=== PATIENT | female | born 1970 | race Caucasian/White ===

== ENCOUNTER → 2018-06-16 | Outpatient (CLI) | payer BC ==
[~2018-06-16] MED LIST: ALPR2TAB37 PO; BTR10SP2 NS; CHOL200035 PO; CYAN1TAB26 PO; ESTR1PAT10 TD; FISH400C PO; MAGN400C PO; MAGN400T6 PO; NAPR-243 PO; TOPI50TA2 PO; TRIPLE OMEGA; TRM50T PO; multi vitamin; vitamin b 12; vitamin d2
--- NOTE | 2018-06-17 13:34 | Diagnostic Imaging Report ---
INDICATION: Routine screening. COMPARISON: 03/01/2015 and 08/11/2013. TECHNIQUE: 2D and 3D bilateral screening mammography was performed with CAD. FINDINGS: Scattered fibroglandular densities are identified bilaterally. The parenchymal pattern is stable. No mass or malignant appearing microcalcifications are seen. The axillae are unremarkable. IMPRESSION: No mammographic features suspicious for malignancy are identified. ACR BI-RADS Category 1: Negative. Result letter will be mailed to the patient. Note: At least 10% of breast cancer is not imaged by mammography. Dictated by: Dictated on workstation # [id number]
== END ==
LOC: RAD 14:56
PROVIDERS: ATTEND Nurse Practitioner Family
DX: Z12.31 Encounter for screening mammogram for malignant neoplasm of breast (principal)
CPT/HCPCS: 77067

== ENCOUNTER 2021-02-28 11:58 | Emergency (ER) | payer SELFPAY ==
[~2021-02-28] VITALS: Ht 170 cm; Wt 78.0 kg
[2021-02-28] MEDS ORDERED: KETOROLAC 30 MG/ML VIAL ONE (12:16)
[2021-02-28] MEDS ORDERED: ONDANSETRON 4 MG/2 ML (SDV) Z0FRAN ONE (12:16)
[2021-02-28] MEDS ORDERED: NS IV 1000 ML 1,000 ML ONE (12:16)
[2021-02-28] MEDS ORDERED: KETOROLAC 30 MG/ML VIAL IVP STA (12:22)
--- NOTE | 2021-02-28 12:27 | ED GI ---
General Chief Complaint: Abdominal/GI Problems Stated Complaint: CHILLS,BACK PAIN, N/V COUGHING History of Present Illness Date Seen by Provider: Feb 28, 2021 Time Seen by Provider: 12:00 Initial Comments 50-year-old female presents for back and lower abdominal pain that is present on the left side. Symptoms began at 0900 today. She awoke and was getting ready to go on a walk when she began having pain, nausea, vomiting, and diarrhea. Her symptoms have persisted. She has had one Covid vaccine and is due for her second shot next week. She was tested once in April 2020. She has been extremely cautious and limiting any social outings because her is on dialysis. She wears a mask and gloves to get groceries and otherwise remains at home. She denies any fevers, cough or loss of taste and smell. She reports feeling fine yesterday and slept through the night without any symptoms. She has had a full hysterectomy no other abdominal surgeries, she is unsure if her appendix was removed during her hysterectomy. She did have a kidney stone in the past approximately 8 years ago. Timing/Duration: 1-3 Hours Severity/Quality: Moderate Location: LLQ Radiation: Flank (left) Activities at Onset: None Modifying Factors: Improves With Resting Associated Symptoms: Back Pain (left lower); No Chest Pain, No Fever/Chills, No Headache; Nausea/Vomiting; No Shortness of Air, No Swelling/Mass in Abdomen, No Weakness Allergies and Home Medications Allergies Coded Allergies: Codeine (Verified Allergy, Unknown, 04/01/06) Home Medications Cholecalciferol (Vitamin D3) 2,000 Unit Capsule, 1,000 MG PO DAILY, (Reported) Cyanocobalamin/Folic Acid 1 Each Tablet, 1 EACH PO DAILY, (Reported) Estradiol 0.1 Mg Patch, 0.05 MG TD WEEKLY, (Reported) Fish Oil/Borage/Flax/Om3,6,9#1 1 Each Capsule, 1 EACH PO DAILY, (Reported) Magnesium Oxide 400 Mg Capsule, 250 MG PO DAILY, (Reported) Naproxen 500 Mg Tablet, 1 EACH PO TID PRN FOR PAIN Prescribed by: SEAN MARTÍNEZ on 10/15/124 Topiramate 50 Mg Tablet, 50 MG PO DAILY, (Reported) Tramadol Hcl 50 Mg Tab, 50 MG PO Q4-6HOURS PRN FOR PAIN Prescribed by: SEAN MARTÍNEZ on 10/15/12 0515 Patient Home Medication List Home Medication List Reviewed: Yes Review of Systems Review of Systems Constitutional: no symptoms reported, see HPI EENTM: No Symptoms Reported, See HPI Gastrointestinal: See HPI, Abdominal Pain; Denies Constipated; Diarrhea, Nausea, Poor Appetite, Vomiting Genitourinary: No Symptoms Reported, See HPI Musculoskeletal: see HPI, back pain (Left flank,lower) All Other Systems Reviewed Negative Unless Noted: Yes Past Exirtog-Gybppu-Lfqxya Hx Past Med/Social Hx: Reviewed Nursing Past Med/Soc Hx Patient Social History Alcohol Use: Occasionally Uses Smoking Status: Current Everyday Smoker Type Used: Cigarettes Recent Hopitalizations: No Past Medical History Surgeries: Yes Appendectomy, Hysterectomy Respiratory: No Cardiac: No Neurological: No 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 oz. kg; BMI Method:Stated General Appearance: WD/WN, mild distress (Secondary to pain and vomiting) HEENT: PERRL/EOMI, normal ENT inspection, TMs normal, pharynx normal, other (Oral mucosa pink and moist) Neck: non-tender, full range of motion, supple Respiratory: chest non-tender, lungs clear, normal breath sounds Cardiovascular: normal peripheral pulses, regular rate, rhythm, no edema Gastrointestinal: normal bowel sounds, soft; No distended, No rebound; tenderness (Generalized throughout the entire abdomen); No mass Extremities: normal range of motion, non-tender, normal inspection Back: normal inspection, no vertebral tenderness, CVA tenderness (L) (Lower) Neurologic/Psychiatric: no motor/sensory deficits, alert, oriented x 3 Skin: normal color, warm/dry Progress/Results/Core Measures Results/Orders Lab Results Laboratory Tests Test 02/28/21 12:25 02/28/21 12:35 Range/Units White Blood Count 9.4 4.3-11.0 10^3/uL Red Blood Count 5.11 3.80-5.11 10^6/uL Hemoglobin 16.0 11.5-16.0 g/dL Hematocrit 48 35-52 % Mean Corpuscular Volume 94 80-99 fL Mean Corpuscular Hemoglobin 31 25-34 pg Mean Corpuscular Hemoglobin Concent 33 32-36 g/dL Red Cell Distribution Width 11.9 10.0-14.5 % Platelet Count 296 130-400 10^3/uL Mean Platelet Volume 9.8 9.0-12.2 fL Immature Granulocyte % (Auto) 1 % Neutrophils (%) (Auto) 73 42-75 % Lymphocytes (%) (Auto) 19 12-44 % Monocytes (%) (Auto) 5 0-12 % Eosinophils (%) (Auto) 2 0-10 % Basophils (%) (Auto) 1 0-10 % Neutrophils # (Auto) 6.8 1.8-7.8 10^3/uL Lymphocytes # (Auto) 1.8 1.0-4.0 10^3/uL Monocytes # (Auto) 0.4 0.0-1.0 10^3/uL Eosinophils # (Auto) 0.1 0.0-0.3 10^3/uL Basophils # (Auto) 0.1 0.0-0.1 10^3/uL Immature Granulocyte # (Auto) 0.1 0.0-0.1 10^3/uL Sodium Level 140 135-145 MMOL/L Potassium Level 3.9 3.6-5.0 MMOL/L Chloride Level 106 98-107 MMOL/L Carbon Dioxide Level 20 L 21-32 MMOL/L Anion Gap 14 5-14 MMOL/L Blood Urea Nitrogen 17 7-18 MG/DL Creatinine 1.04 0.60-1.30 MG/DL Estimat Glomerular Filtration Rate 56 BUN/Creatinine Ratio 16 Glucose Level 111 H 70-105 MG/DL Calcium Level 10.3 H 8.5-10.1 MG/DL Corrected Calcium 8.5-10.1 MG/DL Total Bilirubin 0.3 0.1-1.0 MG/DL Aspartate Amino Transf (AST/SGOT) 40 H 5-34 U/L Alanine Aminotransferase (ALT/SGPT) 55 0-55 U/L Alkaline Phosphatase 80 40-136 U/L C-Reactive Protein High Sensitivity 0.64 H 0.00-0.50 MG/DL Total Protein 9.0 H 6.4-8.2 GM/DL Albumin 4.9 H 3.2-4.5 GM/DL Amylase Level 50 25-125 U/L Lipase 31 8-78 U/L Urine Color YELLOW Urine Clarity CLEAR Urine pH 5.0 5-9 Urine Specific [place] >=1.030 1.016-1.022 Urine Protein TRACE H NEGATIVE Urine Glucose (UA) NEGATIVE NEGATIVE Urine Ketones NEGATIVE NEGATIVE Urine Nitrite NEGATIVE NEGATIVE Urine Bilirubin NEGATIVE NEGATIVE Urine Urobilinogen 0.2 < = 1.0 MG/DL Urine Leukocyte Esterase NEGATIVE NEGATIVE Urine RBC (Auto) 3+ H NEGATIVE Urine RBC >100 H /HPF Urine WBC 0-2 /HPF Urine Squamous Epithelial Cells 5-10 /HPF Urine Crystals NONE /LPF Urine Bacteria FEW H /HPF Urine Casts PRESENT /LPF Urine Granular Casts 5-10 H /LPF Urine Mucus NEGATIVE /LPF Urine Culture Indicated NO Coronavirus 2019 (KENNETH) Negative Negative Micro Results Microbiology 02/28/21 Influenza Types A,B Antigen (ANEL) - Final, Complete My Orders Orders - ANJANA ROSE Covid 19 Inhouse Test (02/28/21 12:14) Ketorolac Injection (Toradol Injection) (02/28/21 12:16) Amylase (02/28/21 12:22) Cbc With Automated Diff (02/28/21 12:22) Comprehensive Metabolic Panel (02/28/21 12:22) Hs C Reactive Protein (02/28/21 12:22) Lipase (02/28/21 12:22) Ed Iv/Invasive Line Start (02/28/21 12:22) Ns Iv 1000 Ml (Sodium Chloride 0.9%) (02/28/21 12:30) Ketorolac Injection (Toradol Injection) (02/28/21 12:22) Ondansetron Injection (Zofran Injectio (02/28/21 12:30) Ns Iv 1000 Ml (Sodium Chloride 0.9%) (02/28/21 12:16) Ondansetron Injection (Zofran Injectio (02/28/21 12:16) Influenza A And B Antigens (02/28/21 12:53) Ct Abd/Pelvis Wo(Kidney Stone) (02/28/21 12:57) Medications Given in ED Current Medications Medications Dose Ordered Sig/Stanley Route Start Time Stop Time Status Last Admin Dose Admin Ondansetron HCl 8 mg ONCE ONCE IVP 02/28/21 12:30 02/28/21 12:31 DC 02/28/21 12:27 8 MG Vital Signs/I&O 02/28/21 12:10 Temp 36.9 Pulse 80 Resp 18 B/P (MAP) 153/108 (123) Pulse Ox 98 Progress Progress Note : Time: 12:00 Progress Note Patient seen and evaluated, will obtain labs, normal saline 1 L IV, Toradol 30 mg IV, and Zofran 8 mg IV. 1245 we will proceed with CT of abdomen and pelvis for rule out kidney stone. 1315 patient reports improvement in pain,B/P110/70. Going to CT. 1400 [address] results reviewed with the patient. No obstructing stones noted. There is some inflammation in the proximal ureter. Discharge instructions and return precautions reviewed with the patient. All questions answered. 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 TECHNIQUE: Multiple contiguous axial images were obtained through the abdomen and pelvis without the use of intravenous contrast. All CT scans use one or more of the following dose optimizing techniques: automated exposure control, MA and/or KvP adjustment based on a patient size and exam type, or iterative reconstruction. HISTORY: Flank pain, kidney stone. COMPARISON: 09/16/2013 FINDINGS: Limited views of the lower thorax are unremarkable. Liver is severely steatotic. No focal liver lesions are seen. There is no biliary ductal dilation. Gallbladder is normal. Pancreas is normal. Spleen is normal. Adrenal glands are normal. There is mild left hydroureteronephrosis. No obstructing stone is seen and this is favored to reflect a recently passed stone. There is a phlebolith within a gonadal vein adjacent to the ureter but no intraureteral stones. Urinary bladder is normal. Visualized bowel is normal in caliber without obstruction or inflammation. No free fluid or air. No abdominal or pelvic lymphadenopathy. Aorta is normal in caliber without aneurysm. There are no suspicious osseous lesions. IMPRESSION: 1. Mildly dilated left ureter and mild left hydronephrosis with no obstructing stone seen. Findings likely reflect recently passed stone. 2. Severe hepatic steatosis. Dictated on workstation # [id number] Dict: 02/28/21 1347 Trans: 02/28/21 1354 [facility] [id number] Interpreted by: AZRA MCCARTHY MD Electronically signed by: Departure Impression Primary Impression: Nausea vomiting and diarrhea Additional Impression: Urolithiasis Qualified Codes: N21.8 - Other lower urinary tract calculus Disposition: HOME, SELF-CARE Condition: Improved Departure-Patient Inst. Decision time for Depature: 13:45 Referrals: KHANH LU DO (PCP/Family) Primary Care Physician Patient Instructions: Kidney Stones (DC) Add. Discharge Instructions: Increase water intake, 16 ounces every 2 hours while awake. Use the Zofran 8 mg every 6-8 hours as needed for nausea or vomiting. Take ibuprofen 600 mg alternating with Tylenol 650 mg every 4 hours as needed for pain. Follow-up with your primary care provider if symptoms are not improving or worsen. Return to the emergency department for new, urgent healthcare concerns. All discharge instructions reviewed with patient and/or family. Voiced understanding. ANJANA ROSE Feb 28, 2021 12:26
[2021-02-28] MEDS ORDERED: ONDANSETRON 4 MG/2 ML (SDV) Z0FRAN IVP ONE (12:30)
[2021-02-28] MEDS ORDERED: NS IV 1000 ML 1,000 ML IV SCH (12:30)
[2021-02-28 12:44] LABS: BASOPHILS # (AUTO) 0.1 10^3/uL (0.0-0.1); BASOPHILS % (AUTO) 1 % (0-10); EOSINOPHILS # (AUTO) 0.1 10^3/uL (0.0-0.3); EOSINOPHILS % (AUTO) 2 % (0-10); HEMATOCRIT 48 % (35-52); LYMPHOCYTES # (AUTO) 1.8 10^3/uL (1.0-4.0); LYMPHOCYTES % (AUTO) 19 % (12-44); MEAN CORPUSCULAR HEMOGLOBIN 31 pg (25-34); MEAN CORPUSCULAR HGB CONC 33 g/dL (32-36); MEAN CORPUSCULAR VOLUME 94 fL (80-99); MEAN PLATELET VOLUME 9.8 fL (9.0-12.2); MONOCYTES # (AUTO) 0.4 10^3/uL (0.0-1.0); MONOCYTES % (AUTO) 5 % (0-12); NEUTROPHILS # (AUTO) 6.8 10^3/uL (1.8-7.8); NEUTROPHILS % (AUTO) 73 % (42-75); PLATELET COUNT 296 10^3/uL (130-400); WHITE BLOOD COUNT 9.4 10^3/uL (4.3-11.0)
[2021-02-28 12:46] LABS: BILIRUBIN,URINE NEGATIVE (NEGATIVE); CLARITY,URINE CLEAR; COLOR,URINE YELLOW; GLUCOSE, URINE (UA) NEGATIVE (NEGATIVE); KETONES,URINE NEGATIVE (NEGATIVE); LEUKOCYTE ESTERASE ,URINE NEGATIVE (NEGATIVE); NITRITE,URINE NEGATIVE (NEGATIVE); PROTEIN,URINE TRACE (NEGATIVE)
[2021-02-28 12:54] LABS: ALBUMIN 4.9 GM/DL (3.2-4.5); CHLORIDE 106 MMOL/L (98-107); POTASSIUM 3.9 MMOL/L (3.6-5.0); SODIUM 140 MMOL/L (135-145)
[2021-02-28 12:55] LABS: AMYLASE 50 U/L (25-125)
[2021-02-28 12:56] LABS: BACTERIA,URINE FEW /HPF; RBC,URINE >100 /HPF; WBC,URINE 0-2 /HPF
[2021-02-28 12:56] LABS: CALCIUM 10.3 MG/DL (8.5-10.1)
[2021-02-28 12:57] LABS: GLUCOSE 111 MG/DL (70-105)
[2021-02-28 12:58] LABS: CARBON DIOXIDE 20 MMOL/L (21-32)
[2021-02-28 12:59] LABS: BILIRUBIN,TOTAL 0.3 MG/DL (0.1-1.0)
[2021-02-28 13:00] LABS: ALKALINE PHOSPHATASE 80 U/L (40-136); CREATININE SERUM 1.04 MG/DL (0.60-1.30); GFR ESTIMATED 56
[2021-02-28 13:01] LABS: BUN/CREATININE RATIO 16
[2021-02-28 13:03] LABS: ALANINE AMINOTRANSFERASE 55 U/L (0-55)
[2021-02-28 13:04] LABS: LIPASE 31 U/L (8-78)
--- NOTE | 2021-02-28 13:54 | Diagnostic Imaging Report ---
EXAMINATION: CT Abdomen Pelvis without contrast. TECHNIQUE: Multiple contiguous axial images were obtained through the abdomen and pelvis without the use of intravenous contrast. All CT scans use one or more of the following dose optimizing techniques: automated exposure control, MA and/or KvP adjustment based on a patient size and exam type, or iterative reconstruction. HISTORY: Flank pain, kidney stone. COMPARISON: 09/16/2013 FINDINGS: Limited views of the lower thorax are unremarkable. Liver is severely steatotic. No focal liver lesions are seen. There is no biliary ductal dilation. Gallbladder is normal. Pancreas is normal. Spleen is normal. Adrenal glands are normal. There is mild left hydroureteronephrosis. No obstructing stone is seen and this is favored to reflect a recently passed stone. There is a phlebolith within a gonadal vein adjacent to the ureter but no intraureteral stones. Urinary bladder is normal. Visualized bowel is normal in caliber without obstruction or inflammation. No free fluid or air. No abdominal or pelvic lymphadenopathy. Aorta is normal in caliber without aneurysm. There are no suspicious osseous lesions. IMPRESSION: 1. Mildly dilated left ureter and mild left hydronephrosis with no obstructing stone seen. Findings likely reflect recently passed stone. 2. Severe hepatic steatosis. Dictated by: Dictated on workstation # [id number]
[2021-02-28 14:12] VITALS: BP 109/58
== END 2021-02-28 14:16 | disposition home or self-care (01) ==
LOC: EDUNIT# 11:58 → ER 12:00
DX: N13.2 Hydronephrosis with renal and ureteral calculous obstruction (principal); R19.7 Diarrhea, unspecified; F17.210 Nicotine dependence, cigarettes, uncomplicated; Z20.822 Contact with and (suspected) exposure to COVID-19; Z87.442 Personal history of urinary calculi; Z85.820 Personal history of malignant melanoma of skin; Z79.52 Long term (current) use of systemic steroids; Z88.5 Allergy status to narcotic agent
CPT/HCPCS: 74176; 80053; 81000; 82150; 83690; 85025; 86141; 87804; 99284; U0002; 36415; 87635

== ENCOUNTER → 2022-01-05 | Outpatient (CLI) | payer SELFPAY ==
[2022-01-05 11:55] LABS: BASOPHILS # (AUTO) 0.1 10^3/uL (0.0-0.1); BASOPHILS % (AUTO) 1 % (0-10); EOSINOPHILS # (AUTO) 0.2 10^3/uL (0.0-0.3); EOSINOPHILS % (AUTO) 3 % (0-10); HEMATOCRIT 48 % (35-52); HEMOGLOBIN 16.1 g/dL (11.5-16.0); LYMPHOCYTES # (AUTO) 2.8 10^3/uL (1.0-4.0); LYMPHOCYTES % (AUTO) 34 % (12-44); MEAN CORPUSCULAR HEMOGLOBIN 31 pg (25-34); MEAN CORPUSCULAR HGB CONC 34 g/dL (32-36); MEAN CORPUSCULAR VOLUME 93 fL (80-99); MEAN PLATELET VOLUME 9.3 fL (9.0-12.2); MONOCYTES # (AUTO) 0.5 10^3/uL (0.0-1.0); MONOCYTES % (AUTO) 6 % (0-12); NEUTROPHILS # (AUTO) 4.6 10^3/uL (1.8-7.8); NEUTROPHILS % (AUTO) 56 % (42-75); PLATELET COUNT 278 10^3/uL (130-400); WHITE BLOOD COUNT 8.3 10^3/uL (4.3-11.0)
--- NOTE | 2022-01-05 12:16 | Diagnostic Imaging Report ---
EXAMINATION: Chest 2 view HISTORY: Cough. COMPARISON: 07/23/2013. FINDINGS: The lung volumes are normal. No focal consolidation is seen. No large pleural effusion or pneumothorax is seen. The cardiomediastinal silhouette is normal in size and contour. No acute osseous abnormality is seen. IMPRESSION: 1. No acute pleuroparenchymal process. Dictated by: Dictated on workstation # [id number]
== END ==
LOC: RAD 11:30
PROVIDERS: ATTEND Nurse Practitioner Family
DX: J01.80 Other acute sinusitis (principal)
CPT/HCPCS: 36415; 71046; 85025

== ENCOUNTER 2022-03-15 08:06 | Emergency (ER) | payer SELFPAY ==
[~2022-03-15] VITALS: Ht 170 cm; Wt 72.0 kg
--- NOTE | 2022-03-15 08:25 | ED Abdominal Pain ---
General Chief Complaint: Abdominal/GI Problems Stated Complaint: ABD PAIN Source of Information: Patient Exam Limitations: No Limitations (ROBERT COREAS MED STUDENT) History of Present Illness Date Seen by Provider: Mar 15, 2022 Time Seen by Provider: 08:10 Initial Comments Mrs. Barraza is a 51yo female that presents to ED today due to abdominal pain. She developed severe lower abdominal pain around 0500. She thinks she could have IBS but she needs to get a colonoscopy. She does not have health insurance until april so cannot get one until then. She will have diarrhea about 4-6 times every morning. There is no blood as far as she can tell. Denies nausea and vomiting. She had covid in December and has had some lingering cough since. She has been on antibiotics and even had a 4 day course of miconazole. She has has kidney stones and UTI before, she states it does not feel like this. Denies urinary symptoms. Has has hysterectomy. Does not drink, smoke, or use drugs. (ROBERT COREAS STUDENT) Initial Comments Patient reports having frequent loose stools, especially in the mornings, for a few months now. This seemed to get worse after having Covid in December and pneumonia in January. She states she completed 3 weeks worth of antibiotics and steroids and during the pneumonia. She has been afebrile. She denies any nausea or vomiting. She has had a hysterectomy sparing ovaries. Pain seems to be generalized in the pelvic region bilaterally. She denies any urinary symptoms. 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 She has felt the need for a colonoscopy to evaluate her bowel troubles for some time but has put that off while caring for her and uninsured. (RONALD MAYEN MD) Allergies and Home Medications Allergies Coded Allergies: Codeine (Verified Allergy, Unknown, 04/01/06) Patient Home Medication List Home Medication List Reviewed: Yes (RONALD MAYEN MD) Cholecalciferol (Vitamin D3) (Vitamin D3) 2,000 Unit Capsule, 1,000 MG PO DAILY, (Reported) Entered as Reported by: JOSEPH JARQUIN on 10/15/12 1234 Cyanocobalamin/Folic Acid (Vitamin C39-Seacp Acid Tablet) 1 Each Tablet, 1 EACH PO DAILY, (Reported) Entered as Reported by: JOSEPH JARQUIN on 10/15/12 1234 Estradiol (Estraderm 0.1MG Patch) 0.1 Mg Patch, 0.05 MG TD WEEKLY, (Reported) Entered as Reported by: JOSEPH JARQUIN on 10/15/12 1228 Fish Oil/Borage/Flax/Om3,6,9#1 ([place] 3-6-9 Complex Softgel) 1 Each Capsule, 1 EACH PO DAILY, (Reported) Entered as Reported by: JOSEPH JARQUIN on 10/15/12 1234 Hyoscyamine Sulfate (Levsin-Sl) 0.125 Mg Tab.subl, 0.125 MG SL Q4H PRN for CRAMPS Prescribed by: RONALD BERRY on 03/15/22 1143 Magnesium Oxide (Magnesium) 400 Mg Capsule, 250 MG PO DAILY, (Reported) Entered as Reported by: JOSEPH JARQUIN on 10/15/12 1228 Naproxen (Naprosyn) 500 Mg Tablet, 1 EACH PO TID PRN Prescribed by: SEAN MARTÍNEZ on 10/15/12 1744 Topiramate (Topiramate) 50 Mg Tablet, 50 MG PO DAILY, (Reported) Entered as Reported by: JOSEPH JARQUIN on 10/15/12 1228 Tramadol Hcl (Ultram) 50 Mg Tab, 50 MG PO Q4-6HOURS PRN Prescribed by: SEAN MARTÍNEZ on 10/15/12 1744 Review of Systems Review of Systems Constitutional: No chills, No fever Respiratory: Cough (chronic-post covid cough); Denies Shortness of Air Cardiovascular: Denies Chest Pain, Denies Palpitations Gastrointestinal: Abdominal Pain (Lower abdominal, middle); Denies Constipated; Diarrhea (4-6 episodes per morning); Denies Nausea, Denies Rectal Bleeding, Denies Vomiting Genitourinary: Denies Hematuria; Other (no dysuria) Musculoskeletal: No back pain, No joint pain Skin: No lesions, No rash Psychiatric/Neurological: Denies Headache, Denies Numbness (ROBERT COREAS MED STUDENT) Past Apslldn-Jtzriv-Osdlsc Hx Patient Social History Tobacco Use?: No Use of E-Cig and/or Vaping dev: No Substance use?: No Alcohol Use?: No (RONALD MAYEN MD) Past Medical History Surgeries: Yes Appendectomy, Hysterectomy Respiratory: No Cardiac: No Neurological: No IMPORT/EXPORT ANALYST History: Hysterectomy Genitourinary: No Gastrointestinal: No Musculoskeletal: No Endocrine: No HEENT: No Cancer: Yes (MELANOMA OF FOOT) What Type of Treatment Did You: Surgical Intervention Psychosocial: No Integumentary: No (ROBERT COREAS STUDENT) Physical Exam Vital Signs Vital Signs - First Documented 03/15/22 08:10 Temp 35.6 Pulse 96 Resp 18 B/P (MAP) 130/96 (107) Pulse Ox 100 (RONALD MAYEN MD) Vital Signs Capillary Refill : (ROBERT COREAS STUDENT) Height/Weight/BMI Height: '" Weight: lbs. oz. kg; 26.00 BMI Method:Stated (ROBERT COREAS STUDENT) General Appearance: WD/WN, no apparent distress HEENT: PERRL/EOMI, normal ENT inspection Neck: normal inspection Respiratory: lungs clear, normal breath sounds, no respiratory distress, no accessory muscle use Cardiovascular: regular rate, rhythm, no edema, no murmur Gastrointestinal: normal bowel sounds, soft, tenderness (Generalized tenderness throughout the lower abdomen bilaterally) Extremities: normal inspection, no pedal edema Neurologic/Psychiatric: gun numberer II-XII nml as tested, no motor/sensory deficits, alert, normal mood/affect, oriented x 3 Skin: normal color, warm/dry (RONALD MAYEN MD) Progress/Results/Core Measures Results/Orders Lab Results Laboratory Tests Test 03/15/22 08:12 03/15/22 08:55 03/15/22 08:57 Range/Units White Blood Count 8.2 4.3-11.0 10^3/uL Red Blood Count 5.06 3.80-5.11 10^6/uL Hemoglobin 16.0 11.5-16.0 g/dL Hematocrit 49 35-52 % Mean Corpuscular Volume 97 80-99 fL Mean Corpuscular Hemoglobin 32 25-34 pg Mean Corpuscular Hemoglobin Concent 33 32-36 g/dL Red Cell Distribution Width 12.1 10.0-14.5 % Platelet Count 299 130-400 10^3/uL Mean Platelet Volume 9.7 9.0-12.2 fL Immature Granulocyte % (Auto) 1 % Neutrophils (%) (Auto) 51 42-75 % Lymphocytes (%) (Auto) 37 12-44 % Monocytes (%) (Auto) 8 0-12 % Eosinophils (%) (Auto) 3 0-10 % Basophils (%) (Auto) 1 0-10 % Neutrophils # (Auto) 4.2 1.8-7.8 10^3/uL Lymphocytes # (Auto) 3.0 1.0-4.0 10^3/uL Monocytes # (Auto) 0.7 0.0-1.0 10^3/uL Eosinophils # (Auto) 0.2 0.0-0.3 10^3/uL Basophils # (Auto) 0.1 0.0-0.1 10^3/uL Immature Granulocyte # (Auto) 0.1 0.0-0.1 10^3/uL Sodium Level 139 135-145 MMOL/L Potassium Level 3.6 3.6-5.0 MMOL/L Chloride Level 100 98-107 MMOL/L Carbon Dioxide Level 24 21-32 MMOL/L Anion Gap 15 H 5-14 MMOL/L Blood Urea Nitrogen 11 7-18 MG/DL Creatinine 0.90 0.60-1.30 MG/DL Estimat Glomerular Filtration Rate 78 BUN/Creatinine Ratio 12 Glucose Level 106 H 70-105 MG/DL Calcium Level 9.6 8.5-10.1 MG/DL Corrected Calcium 9.2 8.5-10.1 MG/DL Total Bilirubin 0.5 0.1-1.0 MG/DL Aspartate Amino Transf (AST/SGOT) 27 5-34 U/L Alanine Aminotransferase (ALT/SGPT) 29 0-55 U/L Alkaline Phosphatase 67 40-136 U/L C-Reactive Protein High Sensitivity 0.41 0.00-0.50 MG/DL Total Protein 7.9 6.4-8.2 GM/DL Albumin 4.5 3.2-4.5 GM/DL Lipase 41 8-78 U/L Urine Color YELLOW Urine Clarity CLEAR Urine pH 5.5 5-9 Urine Specific Willis <=1.005 1.016-1.022 Urine Protein NEGATIVE NEGATIVE Urine Glucose (UA) NEGATIVE NEGATIVE Urine Ketones NEGATIVE NEGATIVE Urine Nitrite NEGATIVE NEGATIVE Urine Bilirubin NEGATIVE NEGATIVE Urine Urobilinogen 0.2 < = 1.0 MG/DL Urine Leukocyte Esterase NEGATIVE NEGATIVE Urine RBC (Auto) NEGATIVE NEGATIVE Urine RBC NONE /HPF Urine WBC NONE /HPF Urine Squamous Epithelial Cells 0-2 /HPF Urine Crystals NONE /LPF Urine Bacteria NEGATIVE /HPF Urine Casts NONE /LPF Urine Mucus NEGATIVE /LPF Urine Culture Indicated NO Stool Occult Blood Immunoassay NEGATIVE NEGATIVE (RONALD MAYEN MD) Micro Results Microbiology 03/15/22 C. difficile GDH Antigen & Toxins - Final, Resulted 03/15/22 Stool Culture, Resulted Pending (RONALD MAYEN MD) My Orders Orders - RONALD MAYEN MD Fentanyl Inj (Sublimaze Injection) (03/15/22 08:30) Cbc With Automated Diff (03/15/22 08:22) Comprehensive Metabolic Panel (03/15/22 08:22) Hs C Reactive Protein (03/15/22 08:) Lipase (03/15/22 08:22) Ua Culture If Indicated (03/15/22 08:22) C Difficile Ag + Toxin A/B. (03/15/22 08:22) Stool Culture (03/15/22 08:22) Ct Abdomen/Pelvis W (03/15/22 09:30) Iohexol Injection (Omnipaque 350 Mg/Ml 1 (03/15/22 10:00) Received Contrast (Hold Metformin- Contr (03/15/22 10:00) Sodium Chloride Flush (Catheter Flush Sy (03/15/22 10:00) Ns (Ivpb) (Sodium Chloride 0.9% Ivpb Bag (03/15/22 10:00) Ketorolac Injection (Toradol Injection) (03/15/22 11:00) Occult Blood Stool (03/15/22 11:36) (RONALD MAYEN MD) Medications Given in ED Current Medications Medications Dose Ordered Sig/Stanley Route Start Time Stop Time Status Last Admin Dose Admin Fentanyl Citrate 50 mcg ONCE ONCE IVP 03/15/22 08:30 03/15/22 08:31 DC 03/15/22 08:31 50 MCG Iohexol 100 ml ONCE ONCE IV 03/15/22 10:00 03/15/22 10:01 DC 03/15/22 10:24 92 ML Ketorolac Tromethamine 30 mg ONCE ONCE IVP 03/15/22 11:00 03/15/22 11:01 DC 03/15/22 11:22 30 MG Sodium Chloride 10 ml NEEDED PRN IV 03/15/22 10:00 03/15/22 11:59 DC 03/15/22 10:24 10 ML Sodium Chloride 100 ml ONCE ONCE IV 03/15/22 10:00 03/15/22 10:01 DC 03/15/22 10:24 80 ML (RONALD MAYEN MD) Vital Signs/I&O 03/15/22 03/15/22 08:10 11:59 Temp 35.6 Pulse 96 82 Resp 18 18 B/P (MAP) 130/96 (107) 132/93 Pulse Ox 100 99 (RONALD MAYEN MD) Progress Progress Note : Time: 12:56 Progress Note Patient was treated with fentanyl and later with Toradol for pain. Work-up was unremarkable. Hemoccult stool was negative. C. difficile screening was obtained because of patient's recent prolonged antibiotic and steroid use. Result is pending. Stool cultures are also pending. Patient was encouraged to follow through with the colonoscopy. See discharge instructions for further discussion. (RONALD MAYEN MD) Diagnostic Imaging Diagonstic Imaging: CT Plain Films/CT/US/NM/MRI: abdomen, pelvis Comments CT abdomen pelvis viewed by me and report reviewed. See report below: NAME: VICENTA BARRAZA [facility] REC#: [id number] PT STATUS: REG ER : 1970 PHYSICIAN: RONALD MAYEN MD ADMIT DATE: 03/15/22/ER Draft Date of Exam:03/15/22 CT ABDOMEN/PELVIS W PROCEDURE: CT abdomen and pelvis with contrast. TECHNIQUE: Multiple contiguous axial images were obtained through the abdomen and pelvis after administration of intravenous contrast. Auto Exposure Controls were utilized during the CT exam to meet ALARA standards for radiation dose reduction. All CT scans use one or more of the following dose optimizing techniques: automated exposure control, MA and/or KvP adjustment based on patient size and exam type or iterative reconstruction. INDICATION: Abdominal pain, diarrhea. Compared with nonenhanced CT abdomen and pelvis performed 02/28/2021. FINDINGS: There is no pathological colonic intestinal fluid loading. No abnormal fecal loading. No pericolonic edema. No segmental or diffuse large bowel wall thickening revealed. The unobstructed small bowel had an unremarkable appearance. Fatty infiltration of the liver has improved in severity from prior. No biliary abnormality. The spleen, adrenals and pancreas unremarkable. Aortoiliac and mesenteric vessels patent and nonaneurysmal. Urinary bladder unremarkable. No adnexal lesion. The uterus absent. Appendix surgically absent. There is no diverticulitis. IMPRESSION: No obstructive features, inflammatory process or acute abnormalities identified. Improvements in magnitude of fatty infiltration of the liver with no biliary pathology or acute pancreatic disease. Dictated on workstation # [id number] Dict: 03/15/22 1029 Trans: 03/15/22 1033 [id number] Interpreted by: NOAH WEI (RONALD MAYEN MD) Departure Impression Primary Impression: Lower abdominal pain Additional Impression: Frequent loose stools Qualified Codes: R19.7 - Diarrhea, unspecified Disposition: 01 HOME, SELF-CARE Condition: Stable Departure-Patient Inst. Decision time for Depature: 11:39 (RONALD MAYEN MD) Referrals: KHANH DOBBINS DO (PCP/Family) Primary Care Physician Patient Instructions: Severe Abdominal Pain Add. Discharge Instructions: Adhere to a clear liquid diet for the remainder of today to allow your bowels to rest. You may use ibuprofen up to 600 mg every 6 hours and/or Tylenol (acetaminophen) up to 1000 mg every 6 hours as needed for pain. If you have crampy pain or hzyd-eru-rxaxioo pain medications are not helpful, try the bowel spasm medicine Levsin (hyoscyamine) as prescribed. This medication dissolves under the tongue. Your stool study results should be available for review by Saturday. Please follow-up with Dr. Dobbins to review these study results. Continue with your plan to pursue colonoscopy as this is a reasonable next step in evaluating your pain. Return to care if you have worsening symptoms despite following these instructions. All discharge instructions reviewed with patient and/or family. Voiced understanding. Scripts Hyoscyamine Sulfate (Levsin-Sl) 0.125 Mg Tab.subl 0.125 MG SL Q4H PRN for CRAMPS, #10 TAB Prov: RONALD MAYEN MD 03/15/22 Copy Copies To 1: KHANH DOBBINS DEREK MED STUDENT Mar 15, 2022 08:25 RONALD MAYEN MD Mar 15, 2022 11:44
[2022-03-15] MEDS ORDERED: fentaNYL INJ 100 MCG/2 ML AMP IVP ONE (08:30)
[2022-03-15 08:37] LABS: BASOPHILS # (AUTO) 0.1 10^3/uL (0.0-0.1); BASOPHILS % (AUTO) 1 % (0-10); EOSINOPHILS # (AUTO) 0.2 10^3/uL (0.0-0.3); EOSINOPHILS % (AUTO) 3 % (0-10); HEMATOCRIT 49 % (35-52); LYMPHOCYTES % (AUTO) 37 % (12-44); MEAN CORPUSCULAR HEMOGLOBIN 32 pg (25-34); MEAN CORPUSCULAR HGB CONC 33 g/dL (32-36); MEAN CORPUSCULAR VOLUME 97 fL (80-99); MEAN PLATELET VOLUME 9.7 fL (9.0-12.2); MONOCYTES # (AUTO) 0.7 10^3/uL (0.0-1.0); MONOCYTES % (AUTO) 8 % (0-12); NEUTROPHILS # (AUTO) 4.2 10^3/uL (1.8-7.8); NEUTROPHILS % (AUTO) 51 % (42-75); PLATELET COUNT 299 10^3/uL (130-400); WHITE BLOOD COUNT 8.2 10^3/uL (4.3-11.0)
[2022-03-15 09:03] LABS: BILIRUBIN,URINE NEGATIVE (NEGATIVE); CLARITY,URINE CLEAR; COLOR,URINE YELLOW; GLUCOSE, URINE (UA) NEGATIVE (NEGATIVE); KETONES,URINE NEGATIVE (NEGATIVE); LEUKOCYTE ESTERASE ,URINE NEGATIVE (NEGATIVE); NITRITE,URINE NEGATIVE (NEGATIVE); PH,URINE 5.5 (5-9); PROTEIN,URINE NEGATIVE (NEGATIVE)
[2022-03-15 09:16] LABS: ALBUMIN 4.5 GM/DL (3.2-4.5); POTASSIUM 3.6 MMOL/L (3.6-5.0)
[2022-03-15 09:17] LABS: CALCIUM 9.6 MG/DL (8.5-10.1)
[2022-03-15 09:19] LABS: TOTAL PROTEIN 7.9 GM/DL (6.4-8.2)
[2022-03-15 09:20] LABS: BILIRUBIN,TOTAL 0.5 MG/DL (0.1-1.0)
[2022-03-15 09:22] LABS: CREATININE SERUM 0.9 MG/DL (0.60-1.30)
[2022-03-15 09:25] LABS: BACTERIA,URINE NEGATIVE /HPF; SQUAMOUS EPITHELIAL CELL,UR 0-2 /HPF
[2022-03-15] MEDS ORDERED: IOHEXOL 350 MG/ML 100 ML (OMNIPAQUE 350) VIAL IV ONE (10:00)
[2022-03-15] MEDS ORDERED: HOLD METFORMIN - RECEIVED CONTRAST 20 ML VIAL IV SCH (10:00)
[2022-03-15] MEDS ORDERED: NS 100 ML (IVPB) BAG IV ONE (10:00)
[2022-03-15] MEDS ORDERED: CATHETER FLUSH 10 ML SYR IV PRN (10:00)
--- NOTE | 2022-03-15 10:33 | Diagnostic Imaging Report ---
PROCEDURE: CT abdomen and pelvis with contrast. TECHNIQUE: Multiple contiguous axial images were obtained through the abdomen and pelvis after administration of intravenous contrast. Auto Exposure Controls were utilized during the CT exam to meet ALARA standards for radiation dose reduction. All CT scans use one or more of the following dose optimizing techniques: automated exposure control, MA and/or KvP adjustment based on patient size and exam type or iterative reconstruction. INDICATION: Abdominal pain, diarrhea. Compared with nonenhanced CT abdomen and pelvis performed 02/28/2021. FINDINGS: There is no pathological colonic intestinal fluid loading. No abnormal fecal loading. No pericolonic edema. No segmental or diffuse large bowel wall thickening revealed. The unobstructed small bowel had an unremarkable appearance. Fatty infiltration of the liver has improved in severity from prior. No biliary abnormality. The spleen, adrenals and pancreas unremarkable. Aortoiliac and mesenteric vessels patent and nonaneurysmal. Urinary bladder unremarkable. No adnexal lesion. The uterus absent. Appendix surgically absent. There is no diverticulitis. IMPRESSION: No obstructive features, inflammatory process or acute abnormalities identified. Improvements in magnitude of fatty infiltration of the liver with no biliary pathology or acute pancreatic disease. Dictated by: Dictated on workstation # [id number]
[2022-03-15] MEDS ORDERED: KETOROLAC 30 MG/ML VIAL IVP ONE (11:00)
[2022-03-15] MEDS ORDERED: HYOS0.1283 SL (11:43)
[2022-03-15 11:59] VITALS: BP 132/93
== END 2022-03-15 11:59 | disposition home or self-care (01) ==
LOC: EDUNIT# 08:06 → ER 08:08
DX: R10.30 Lower abdominal pain, unspecified (principal); R19.7 Diarrhea, unspecified
CPT/HCPCS: 36415; 74177; 80053; 81000; 82274; 83690; 85025; 86141; 87015; 87045; 87046; 87324; 87449; 87899

== ENCOUNTER 2022-05-07 05:38 | Outpatient (CLI) | payer BC ==
[~2022-05-07] VITALS: Ht 170.2 cm; Wt 72.6 kg
[~2022-05-07 05:38] MED LIST changes: +HYOS0.1283 SL
[2022-05-07] MEDS ORDERED: ESTR0.5T3 PO (09:43)
[2022-05-07] MEDS ORDERED: FLUC150T41 PO (09:43)
== END 2022-05-07 09:51 | disposition home or self-care (01) ==
LOC: PREOP 05:38
PROVIDERS: ATTEND Internal Medicine
DX: Z01.818 Encounter for other preprocedural examination (principal)

== ENCOUNTER 2022-05-11 10:23 | Day surgery (SDC) | payer BC ==
--- NOTE | 2022-05-07 08:06 | HISTORY AND PHYSICAL ---
DATE OF SERVICE: COLONOSCOPY HISTORY AND PHYSICAL HISTORY OF PRESENT ILLNESS: The patient is a 51-year-old white female referred by Dr. Mary Dobbins for her first screening colonoscopy. She reports that she had COVID infection, diagnosed around 12/23/2021. She ended up on some antibiotic therapy for several weeks and following that did have diarrhea with some bilateral lower quadrant crampy abdominal pain. It got bad enough that she did actually go to the emergency room on review of electronic medical record on 03/15/2022. Her workup there was unremarkable including a CT scan of the abdomen and pelvis that was unremarkable. Unremarkable CBC and chemistry panel with negative stool for occult blood. She was given a round of Diflucan and within a week or two being on antifungal medication, she reported resolution of her diarrhea. She was not sure of the time whether or not she had stool for C. diff done. She reports no significant abdominal symptoms currently, has noted no bright red blood per rectum, melena with resolution of her diarrhea. PAST MEDICAL HISTORY: Pertinent for recovery from COVID with no chronic symptoms being reported and no hospitalization required. 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 Simple excision number of years ago with no evidence for recurrence. PAST SURGICAL HISTORY: She had total abdominal hysterectomy and bilateral salpingo-oophorectomy in 2005. Prior to this, she had multiple surgeries for apparent large ovarian cyst. FAMILY HISTORY: Mother is living at the age of 75, dealing with some long COVID symptoms despite vaccination. Father living at age of 77, has had a history of aortic valve replacement. No reported family history for colon cancer and she is not aware if anybody has had colon polyps. 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 She reports no past smoking history and no significant alcohol intake history. REVIEW OF SYSTEMS: CONSTITUTIONAL: Denies night sweats, chills, fever or change in weights. GASTROINTESTINAL: As noted in the HPI. PULMONARY: Denies cough, wheezing or shortness of breath. CARDIOVASCULAR: Denies orthopnea, PND, pedal edema or chest discomfort. PHYSICAL EXAMINATION: GENERAL: Pleasant white female in no acute distress. VITAL SIGNS: She is 5 feet 7 inches tall, weight 168 pounds. Blood pressure 118/82. HEENT: Unremarkable. Sclerae nonicteric. CHEST: Clear to auscultation. CARDIOVASCULAR: Reveals regular rate and rhythm without murmur, S3 or S4. ABDOMEN: Soft, supple without mass or organomegaly. Mild left lower quadrant discomfort to palpation present. No bruits noted. Bowel sounds positive. No evidence for distention. EXTREMITIES: Reveal no cyanosis, clubbing or edema. ASSESSMENT: The patient is being set up for her first screening colonoscopy. She reports that she only has Fridays off cannot afford to take any other time off to do the procedure on any another day, so this is being scheduled at [facility], my only option for her. I thank you for the referral of this pleasant lady. Prep instructions were given. Electronic medical record was reviewed. Job ID: [id number] DocumentID: [id number] Dictated Date: 05/03/2022 16:50:21 Keymodule Assembly Machine Tender Date: 05/03/2022 17:24:26 Dictated By: MANI SZYMANSKI MD MTDD
[~2022-05-11] VITALS: Ht 170 cm; Wt 72.6 kg
[~2022-05-11 10:23] MED LIST changes: +ESTR0.5T3 PO; +FLUC150T41 PO
[2022-05-11] MEDS ORDERED: LACTATED RINGERS 1,000 ML IV STA (10:36)
[2022-05-11 11:00] VITALS: BP 112/83
--- NOTE | 2022-05-11 11:06 | Pre-Op Note & Conscious Sedat ---
Pre-Operative Progress Note H&P Reviewed The H&P was reviewed, patient examined and no changes noted. Date H&P Reviewed: May 11, 2022 Time H&P Reviewed: 10:35 Conscious Sedation Pre-Proced ASA Score 2 For ASA 3 and 4: Consider anesthesia and medical clearance. Also, for patients with a history of failed moderate sedation consider anesthesia. Airway Lungs Heart ASA score ASA 1: a normal healthy patient ASA 2: a patient with a mild systemic disease (mid diabetes, controlled hypertension, obesity ASA 3: a patient with a severe systemic disease that limits activity (angina, COPD, prior Myocardial infarction) ASA 4: a patient with an incapacitating disease that is a constant threat to life (CHF, renal failure) ASA 5: a moribund patient not expected to survive 24 hrs. (ruptured aneurysm) ASA 6: a declared brain- patient whose organs are being harvested. For emergent operations, add the letter E after the classification Mallampati Classification Grade 2 Sedation Plan Analgesia, Amnesia, Plan communicated to team members, Discussed options with patient/fam, Discussed risks with patient/fam The patient is an appropriate candidate to undergo the planned procedure, sedation, and anesthesia. The patient immediately re-assessed prior to indication. MANI SZYMANSKI MD May 11, 2022 11:05
[2022-05-11] MEDS ORDERED: PROPOFOL INJECTION 50 ML IV ONE (11:27)
[2022-05-11] MEDS ORDERED: MIDAZOLAM 2 MG/2 ML (VERSED) VIAL ONE (11:27)
[2022-05-11 11:55] VITALS: BP 90/51
[2022-05-11 12:00] VITALS: BP 93/53
[2022-05-11 12:05] VITALS: BP 110/55
[2022-05-11 12:30] VITALS: BP 119/85
--- NOTE | 2022-05-11 12:30 | Anesthesia-General Post-Op ---
MAC Patient Condition Mental Status/LOC: Same as Preop Cardiovascular: Satisfactory Nausea/Vomiting: Absent Respiratory: Satisfactory Pain: Controlled Complications: Absent Post Op Complications Complications None Follow Up Care/Instructions Patient Instructions None needed. Anesthesiology Discharge Order Discharge Order Patient is doing well, no complaints, stable vital signs, no apparent adverse anesthesia problems. CAITLIN HUBBARD DO May 11, 2022 12:29
[2022-05-11 12:52] VITALS: BP 119/85
--- NOTE | 2022-05-11 19:03 | OPERATIVE REPORT ---
DATE OF SERVICE: COLONOSCOPY SUMMARY INDICATION FOR THE PROCEDURE: Screening. DESCRIPTION OF PROCEDURE: The patient was placed in the left lateral decubitus position. Prior to undergoing colonoscopy, digital rectal evaluation was performed. Anal sphincter tone was normal and the perianal reflexes intact. No abnormalities were noted on digital inspection of anal canal or distal rectal vault. The colonoscope was then inserted into the rectum and under direct visualization advanced to the cecum. The cecum was identified by identification of the ileocecal valve and cecal strap. Photographic documentation was obtained. A careful inspection was made as the colonoscope was withdrawn. Quality of the prep was good. FINDINGS: There was no evidence for internal or external hemorrhoids. Present in the mid rectum was 2 mm sessile hyperplastic-appearing polyp. It was photographed and biopsied and ablated with no subsequent blood loss. Present in the distal sigmoid colon was a 4 mm sessile polyp that was biopsied and ablated and submitted for histopathology. The remainder of the sigmoid colon, descending colon, splenic flexure, transverse colon, hepatic flexure, ascending colon, and cecum were unremarkable. There was no evidence for diverticular disease. ASSESSMENT: Two diminutive polyps were removed, one with hyperplastic features discarded, post cauterization, the other adenomas versus inflammatory was biopsied and ablated and submitted for histopathology. We will await histopathology report, but as long as there continues to be no family history for colon cancer and there are no surprises, we will likely be advocating repeat screening colonoscopy in 10 years. Job ID: [id number] DocumentID: [id number] Dictated Date: 05/11/2022 11:53:14 Naval Engineer Date: 05/11/2022 19:02:57 Dictated By: MANI SZYMANSKI MD
== END 2022-05-11 12:52 | disposition home or self-care (01) ==
LOC: ENDO 10:23
PROVIDERS: ATTEND Internal Medicine
DX: Z12.11 Encounter for screening for malignant neoplasm of colon (principal); K63.5 Polyp of colon; Z86.16 Personal history of COVID-19